=== PATIENT | male | born 1980 | race Caucasian/White ===

== ENCOUNTER 2016-09-22 13:08 | Emergency (ER) | payer OTHER ==
--- NOTE | 2016-09-22 15:07 | EDPHY ---
H & P HPI/ROS: CHIEF COMPLAINT: Right arm pain History by patient HISTORY OF PRESENT ILLNESS: 36-year-old man with a history of left cervical radiculopathy presents complaining of pain in his right arm similar to what happened with his left arm several years ago. 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 He describes it is involving his right shoulder, scapula right upper arm and down his forearm into his fingers and thumb excluding his small finger. He has tried some ibuprofen with minimal relief. This is his 3rd day of symptoms and he is concerned that he can 't work because of the pain and tingling in his arm. He denies any specific trauma. It does feel somewhat better when his massage his his right trapezius muscles. REVIEW OF SYSTEMS: As in HPI, and all other systems reviewed and are negative Smoking Status: Heavy smoker Physical Exam: General Appearance: Alert and no distress. Eyes: Pupils equal and round no injection. Musculoskeletal: Neck is supple and nontender. Back: No bony tenderness Extremities: Right shoulder full range of motion without pain and against resistance, right elbow and wrist full range of motion without pain against resistance, radial pulses 2+ and equal to the left, radial, median and ulnar nerves are intact motor and sensory, patient has subjective decreased sensation in his index middle and ring finger but not his thumb or pinky. Skin: No rashes or lesions. Constitutional: Initial Vital Signs Temperature (C) 36.6 C 09/22/16 13:16 Heart Rate 67 09/22/16 13:16 Respiratory Rate 18 09/22/16 13:16 Blood Pressure 133/84 H 09/22/16 13:16 O2 Sat (%) 95 09/22/16 13:16 O2 Delivery Mode Room Air Allergies/Adverse Reactions: No Known Allergies Allergy (Unverified 07/22/14 10:26) Home Medications: Medication Instructions Recorded Crow 07/22/14 Cyclobenzaprine [Flexeril 10 MG 10 mg PO TID PRN #15 tab 09/22/16 (*)] Meloxicam 7.5 mg PO DAILY #10 tablet 09/22/16 MDM/Departure - [facility] ED Course/Re-evaluation: 36-year-old man presents with right arm pain and numbness which he is concerned is a radiculopathy on the right since he has had 1 previously confirmed by MRI on the left. Exam today shows no evidence of neurologic deficit. We will treat the patient with conservative measures with anti-inflammatories, muscle relaxants and follow up with his primary care physician is of his symptoms persist or get worse. Patient understands and is agreeable to this plan. He did request a work note he has been given 2 days off work and unrestricted duty until he is seen again. - Depart Disposition: Home, Routine, Self-Care Clinical Impression: Arm pain, right Instructions: Cervical Radiculopathy (ED) Additional Instructions: You were seen by Dr. Xin Johnson today. Take anti-inflammatory pain medicine as prescribed. Take muscle relaxants as needed. Follow up with her primary care physician if symptoms persist see the need for MRI. Return for any worsening or new concerns. Stand Alone Forms: Work Limited Duty, Work Excuse Prescriptions: Cyclobenzaprine [Flexeril 10 MG (*)] 10 mg PO TID PRN #15 tab PRN Reason: Spasms Meloxicam 7.5 mg PO DAILY #10 tablet Referrals: SOBEIDA SHORE MD [Other] - As per Instructions
[2016-09-22 15:18] VITALS: BP 125/78; PULSE 62; RESP 16; TEMP 98.1; O2SAT 92
== END 2016-09-22 15:13 | disposition home or self-care (01) ==
LOC: CED 13:08
DX: M79.601 Pain in right arm (principal); F17.200 Nicotine dependence, unspecified, uncomplicated